=== PATIENT | male | born 1960 | race African-American/Black ===

== ENCOUNTER 2024-07-13 00:52 | Emergency (ER) | payer OTHER ==
[~2024-07-13] VITALS: Ht 182.9 cm; Wt 86.0 kg
[2024-07-13 00:58] VITALS: BP 117/67; PULSE 70; RESP 16; TEMP 98.4; O2SAT 99
[2024-07-13 02:26] LABS: BASOPHILS % 0.5 % (0.0-2.0); EOSINOPHILS % 8.6 % (0.0-5.0); HEMATOCRIT. 39.2 % (42.0-52.0); HEMOGLOBIN. 13.2 g/dL (14.0-18.0); LYMPHOCYTES % 32.7 % (20.0-50.0); MEAN CORPUSCULAR HEMOGLOBIN 32.3 pg (28.0-32.0); MEAN CORPUSCULAR HGB CONC 33.5 g/dL (31.0-37.0); MEAN CORPUSCULAR VOLUME 96.5 fL (80.0-94.0); MEAN PLATELET VOLUME 8.1 fl (7.4-10.4); MONOCYTES % 8.9 % (2.0-8.0); NEUTROPHILS % 49.3 % (40.0-76.0); PLATELET 210 x1000/uL (130-400); RED BLOOD CELL COUNT 4.07 mill/uL (4.7-6.1); RED CELL DISTRIBUTION WIDTH 13.3 % (11.6-14.6); WHITE BLOOD COUNT 6.7 x1000/uL (4.5-11.0)
[2024-07-13 03:05] LABS: CARBON DIOXIDE 24 mEq/L (21-32); CHLORIDE 106 mEq/L (98-107); SODIUM 138 mEq/L (136-145)
[2024-07-13 03:07] LABS: CALCIUM 9.8 mg/dL (8.7-10.4)
[2024-07-13 03:11] LABS: CREATININE 1.3 mg/dL (0.6-1.3)
[2024-07-13 03:12] LABS: GLUCOSE 88 mg/dL (70-105); UREA NITROGEN BLOOD 17 mg/dL (9-23)
[2024-07-13 03:56] LABS: TROPONIN I HIGH SENSITIVITY < 4 ng/L (3.0-53)
[2024-07-13] MEDS ORDERED: IBUP-2029 MT (04:31)
== END 2024-07-13 05:12 | disposition home or self-care (01) ==
LOC: ER 00:52
DX: M79.601 Pain in right arm (principal); I10 Essential (primary) hypertension; Z55.6 Problems related to health literacy; Z88.5 Allergy status to narcotic agent
CPT/HCPCS: 36415; 71045; 80048; 84484; 85025; 93005; 99285